=== PATIENT | male | born 1965 | race Hispanic/Latino ===

== ENCOUNTER 2017-08-08 23:00 | Emergency (ER) | payer SELFPAY ==
[2017-08-09 00:21] LABS: Basophils % (Auto) 0.4 % (0.0-1.8); Eosinophils % (Auto) 1.2 % (0.0-4.3); Hematocrit 41.3 % (35.5-45.6); Mean Corpuscular HGB Conc 34 % (32-34); Mean Corpuscular Hemoglobin 31 pg (28-32); Mean Corpuscular Volume 92 fl (84-94); Platelet Count 306 K/mm3 (140-440); Red Blood Count 4.48 M/mm3 (3.65-5.03); Red Cell Distribution Width 14.2 % (13.2-15.2); White Blood Count 9.9 K/mm3 (4.5-11.0)
[2017-08-09 00:34] LABS: Anion Gap 19 mmol/L; BUN/Creatinine Ratio 6.66; Blood Urea Nitrogen 6 mg/dL (9-20); Calcium 9.2 mg/dL (8.4-10.2); Carbon Dioxide 27 mmol/L (22-30); Chloride 92.6 mmol/L (98-107); Glucose 113 mg/dL (75-100); Potassium 3.3 mmol/L (3.6-5.0); Sodium 135 mmol/L (137-145)
--- NOTE | 2017-08-09 07:01 | XRay Report ---
Chest 2 views: History: Difficulty breathing. Findings: Normal cardiomediastinal silhouette. Trachea is midline. No consolidation, pneumothorax or pleural effusion. Impression: No acute cardiopulmonary findings.
[2017-08-09 07:04] LABS: Creatine Kinase MB 1.9 ng/mL (0.0-4.0)
[2017-08-09] MEDS ORDERED: K-DUR PO ONE (07:27)
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
[2017-08-09 08:03] LABS: Urine Drugs of Abuse Note Disclamer
[2017-08-09 08:10] LABS: Bilirubin,Urine NEG (Negative); Blood,Urine NEG (Negative); Ketones,Urine NEG (Negative); Leukocyte Esterase,Urine NEG (Negative); Mucus,Urine 3+ /HPF; Nitrite,Urine NEG (Negative); Protein,Urine <15 mg/dL mg/dL (Negative); Urobilinogen,Urine < 2.0 mg/dL (<2.0)
[2017-08-09] MEDS ORDERED: TYLENOL PO PRN (08:16)
[2017-08-09] MEDS ORDERED: MILK OF MAGNESIA PO PRN (08:16)
[2017-08-09] MEDS ORDERED: ALUM-MAG HYDROX-SIMETH 200-200-20MG/5ML PO PRN (08:16)
[2017-08-09 08:17] VITALS: BP 115/79
== END 2017-08-09 09:31 | disposition home or self-care (01) ==
LOC: EEVIPCON 23:00 → ED 23:00
DX: F15.10 Other stimulant abuse, uncomplicated (principal); E87.6 Hypokalemia; F17.210 Nicotine dependence, cigarettes, uncomplicated
CPT/HCPCS: 36415; 71020; 80048; 80307; 81001; 82550; 82553; 84484; 85025; 99284; G0480; 80320

== ENCOUNTER 2017-08-10 22:06 | Emergency (ER) | payer OTHER ==
[2017-08-10 23:57] LABS: Basophils % (Auto) 0.6 % (0.0-1.8); Eosinophils % (Auto) 2.5 % (0.0-4.3); Hematocrit 39.3 % (35.5-45.6); Hemoglobin 13.2 gm/dl (11.8-15.2); Mean Corpuscular HGB Conc 33 % (32-34); Mean Corpuscular Hemoglobin 31 pg (28-32); Mean Corpuscular Volume 92 fl (84-94); Platelet Count 241 K/mm3 (140-440); Red Blood Count 4.27 M/mm3 (3.65-5.03); Red Cell Distribution Width 13.9 % (13.2-15.2); White Blood Count 8.8 K/mm3 (4.5-11.0)
[2017-08-11 00:30] LABS: BUN/Creatinine Ratio 11.11; Blood Urea Nitrogen 10 mg/dL (9-20); Calcium 8.7 mg/dL (8.4-10.2); Carbon Dioxide 27 mmol/L (22-30); Chloride 97.8 mmol/L (98-107); Glucose 86 mg/dL (75-100); Potassium 3.5 mmol/L (3.6-5.0); Sodium 140 mmol/L (137-145)
[2017-08-11 00:32] LABS: Anion Gap 19 mmol/L
--- NOTE | 2017-08-11 07:49 | Emergency Department Report ---
ED Psych HPI - General Chief Complaint: Psych Stated Complaint: SI/HI THOUGHTS Time Seen by Provider: 08/10/17 23:29 Source: patient Mode of arrival: Ambulatory - History of Present Illness Complaint: suicidal ideation, feels depressed, other (pt also has homicidal ideations) -: month(s) (for a few months) Associated Psychiatric Symptoms: depression, suicidal ideation, homicidal ideation, visual hallucinations, delusions History of same: Yes Quality: getting worse Improves With: none Worsens With: none Context: not taking psychiatric (for a few years) Associated Symptoms: insomnia Treatments Prior to Arrival: none If Self Harm: admits thoughts of, has plan, other (pt alsohas plan of hurting other people) - Related Data Allergies Allergy/AdvReac Type Severity Reaction Status Date / Time No Known Allergies Allergy Verified 08/08/17 23:41 ED Review of Systems ROS: Stated complaint: SI/HI THOUGHTS Other details as noted in HPI Comment: All other systems reviewed and negative Constitutional: denies: chills, diaphoresis, fever, malaise Eyes: denies: eye discharge, vision change ENT: denies: throat pain, dental pain, hearing loss Respiratory: denies: cough, shortness of breath, SOB with exertion, SOB at rest Cardiovascular: denies: chest pain, palpitations, dyspnea on exertion, edema Endocrine: no symptoms reported Gastrointestinal: denies: nausea, vomiting, diarrhea, constipation, hematemesis Genitourinary: denies: urgency, frequency, hematuria Musculoskeletal: denies: back pain, joint swelling, arthralgia Skin: denies: lesions, change in color, change in hair/nails Neurological: denies: weakness, numbness, paresthesias, confusion Psychiatric: visual hallucinations, homicidal thoughts, suicidal thoughts ED Past Medical Hx - Past Medical History Additional medical history: 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 Absent: scleral icterus, conjunctival injection - ENT ENT exam: Present: normal exam, normal orophraynx, mucous membranes moist - Neck Neck exam: Present: normal inspection, full ROM. Absent: tenderness, meningismus, lymphadenopathy - Respiratory Respiratory exam: Present: normal lung sounds bilaterally. Absent: respiratory distress, wheezes, chest wall tenderness, accessory muscle use, decreased breath sounds - Cardiovascular Cardiovascular Exam: Present: regular rate, normal heart sounds. Absent: normal rhythm, systolic murmur - GI/Abdominal GI/Abdominal exam: Present: soft, normal bowel sounds. Absent: distended, hyperactive bowel sounds, hypoactive bowel sounds, organomegaly - Rectal Rectal exam: Present: deferred - Extremities Exam Extremities exam: Present: normal inspection, full ROM, normal capillary refill - Back Exam Back exam: Present: normal inspection, full ROM - Neurological Exam Neurological exam: Present: alert, oriented X3, CN II-XII intact - Psychiatric Psychiatric exam: Present: flat affect, homicidal ideation, suicidal ideation ED Course Vital Signs 08/10/17 22:17 Temperature 98.2 F Pulse Rate 99 H Respiratory 16 Rate Blood Pressure 126/87 [Right] O2 Sat by Pulse 100 Oximetry ED Medical Decision Making - Lab Data Result diagrams: 08/10/17 23:40 08/10/17 23:40 Critical Care Time: No Critical care attestation.: If time is entered above; I have spent that time in minutes in the direct care of this critically ill patient, excluding procedure time. ED Disposition Clinical Impression: Suicidal ideations, Homicidal ideations Disposition: [id number]/TX-[id number] PSY HOSP/PSY UNIT Is pt being admited?: No Does the pt Need Aspirin: No Condition: Stable Referrals: PRIMARY CARE, [Primary Care Provider] - 3-5 Days Time of Disposition: 08:05
[2017-08-11 16:03] LABS: Urine Drugs of Abuse Note Disclamer
[2017-08-11 16:18] LABS: Bilirubin,Urine NEG (Negative); Blood,Urine NEG (Negative); Ketones,Urine NEG (Negative); Leukocyte Esterase,Urine NEG (Negative); Mucus,Urine 1+ /HPF; Nitrite,Urine NEG (Negative); RBC,Urine < 1.0 /HPF (0.0-6.0)
[2017-08-11] MEDS ORDERED: MOTRIN PO ONE (21:34)
[2017-08-11] MEDS ORDERED: MOTRIN PO PRN (21:43)
[2017-08-13 12:24] VITALS: BP 96/63
== END 2017-08-13 12:27 ==
LOC: ED 22:06 → EEVIPCON 22:06 → ED 08-13 12:27
DX: R45.851 Suicidal ideations (principal); R45.850 Homicidal ideations; F32.9 Major depressive disorder, single episode, unspecified; F15.10 Other stimulant abuse, uncomplicated; F17.200 Nicotine dependence, unspecified, uncomplicated
CPT/HCPCS: 36415; 80048; 80307; 81001; 85025; 99285; G0480; 80320

== ENCOUNTER 2017-11-22 09:33 | Emergency (ER) | payer SELFPAY ==
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
--- NOTE | 2017-11-22 12:48 | XRay Report ---
ROUTINE CHEST, TWO VIEWS: History: Shortness of breath. PA and lateral views demonstrate the heart and mediastinal contour to be of normal size and shape. The lungs are clear and fully expanded and the soft tissues and bony structures are normal. IMPRESSION: Normal study.
[2017-11-22 16:52] VITALS: BP 131/92
[2017-11-22] MEDS ORDERED: ZOFRAN ODT PO ONE (16:59)
[2017-11-22] MEDS ORDERED: TYLENOL PO ONE (16:59)
== END 2017-11-22 19:35 | disposition left against medical advice (07) ==
LOC: ED 09:33
DX: R51 Headache (principal); Z53.21 Procedure and treatment not carried out due to patient leaving prior to being seen by health care provider; W19.XXXA Unspecified fall, initial encounter; Y93.89 Activity, other specified; Y99.8 Other external cause status; Y92.89 Other specified places as the place of occurrence of the external cause
CPT/HCPCS: 70450; 71046; Q0162